=== PATIENT | male | born 1950 | race Caucasian/White ===

== ENCOUNTER 2022-01-07 10:54 | Observation (INO) | payer MEDICARE ==
[~2022-01-07] VITALS: Ht 177.8 cm; Wt 120.0 kg
[2022-01-07 11:24] LABS: HEMATOCRIT 48.2 % (39.0-50.0); HEMOGLOBIN 16.2 g/dl (14.0-18.0); IMMATURE GRANULOCYTES 0.3 % (0.0-5.0); MEAN CELL VOLUME 85.5 fL CALC (80.0-100.0); MEAN CORPUSCULAR HGB 28.7 pG CALC (26.0-32.0); MEAN CORPUSCULAR HGB CONC 33.6 g/dL CAL (32.0-36.0); NEUT# 6.03 thou/uL (1.82-7.42); RED BLOOD COUNT 5.64 mill/uL (4.70-6.10); RED CELL DISTRI WIDTH 15.4 % (11.5-15.5)
[2022-01-07 11:51] LABS: ALBUMIN 4.5 g/dL (3.2-5.0); ALKALINE PHOSPHATASE 88 u/l (38-126); ANION GAP 14 (6-22 (CALC)); BILIRUBIN, TOTAL 1.4 mg/dL (0.0-1.4); BUN 17 mg/dL (8-23); BUN/CREATININE RATIO 31 (12-20 (CALC)); CARBON DIOXIDE 25 mmol/l (22-30); CHLORIDE 102 mmol/l (95-108); CREATININE 0.6 mg/dL (0.7-1.3); GFR FOR AFR.AMER. > 60 ML/MIN (>=60 (CALC)); GFR OTHER RACES > 60 ML/MIN (>=60 (CALC)); POTASSIUM 4.1 mmol/l (3.5-5.1); SGOT/AST 23 u/l (19-48); SODIUM 138 mmol/l (137-146); TOTAL PROTEIN 7.6 g/dL (6.3-8.2)
[2022-01-07] MEDS ORDERED: LISINOPRIL20 M1 PO (14:19)
[2022-01-07] MEDS ORDERED: NORVASC2.5 M1 PO (14:19)
[2022-01-07] MEDS ORDERED: METFORMIN HCL1000 MG PO (14:20)
[2022-01-07 16:55] VITALS: BP 156/93
[2022-01-07 19:21] VITALS: BP 152/80
[2022-01-08] VITALS (8 sets, daily range): BP systolic 136–176; BP diastolic 70–96
[2022-01-08] MEDS ORDERED: VITAMIN C500 M6 PO (10:25)
[2022-01-08] MEDS ORDERED: VITAMIN E100 UNI2 PO (10:25)
[2022-01-08 15:28] LABS: URINE BILIRUBIN - DIPSTICK NEGATIVE (NEGATIVE); URINE BLOOD DIPSTICK NEGATIVE (NEGATIVE); URINE CLARITY CLEAR; URINE GLUCOSE - DIPSTICK NEGATIVE (NEGATIVE); URINE KETONE NEGATIVE (NEGATIVE); URINE LEUK ESTERASE NEGATIVE (Negative); URINE NITRITE - DIPSTICK NEGATIVE (Negative); URINE PH 5.5 (4.5-8.0); URINE PROTEIN - DIPSTICK 30 mg/dL (NEG-TRACE); URINE SPECIFIC GRAVITY >=1.030
[2022-01-08 15:29] LABS: URINE COLOR DK. YELLOW; URINE EPITHELIAL CELLS FEW EPI/hpf (0-FEW); URINE MUCUS FEW hpf (NONE-FEW)
[2022-01-09 04:31] VITALS: BP 145/90
[2022-01-09 05:51] LABS: HEMATOCRIT 44.9 % (39.0-50.0); HEMOGLOBIN 14.7 g/dl (14.0-18.0); IMMATURE GRANULOCYTES 0.7 % (0.0-5.0); MEAN CELL VOLUME 85.9 fL CALC (80.0-100.0); MEAN CORPUSCULAR HGB 28.1 pG CALC (26.0-32.0); MEAN CORPUSCULAR HGB CONC 32.7 g/dL CAL (32.0-36.0); NEUT# 5.83 thou/uL (1.82-7.42); RED BLOOD COUNT 5.23 mill/uL (4.70-6.10); RED CELL DISTRI WIDTH 15.2 % (11.5-15.5)
[2022-01-09 06:13] LABS: ALBUMIN 3.7 g/dL (3.2-5.0); ALKALINE PHOSPHATASE 88 u/l (38-126); ANION GAP 14 (6-22 (CALC)); BILIRUBIN, TOTAL 0.9 mg/dL (0.0-1.4); BUN 11 mg/dL (8-23); BUN/CREATININE RATIO 19 (12-20 (CALC)); CARBON DIOXIDE 24 mmol/l (22-30); CHLORIDE 105 mmol/l (95-108); CREATININE 0.6 mg/dL (0.7-1.3); GFR FOR AFR.AMER. > 60 ML/MIN (>=60 (CALC)); GFR OTHER RACES > 60 ML/MIN (>=60 (CALC)); POTASSIUM 3.8 mmol/l (3.5-5.1); SGOT/AST 21 u/l (19-48); SODIUM 139 mmol/l (137-146); TOTAL PROTEIN 6.8 g/dL (6.3-8.2)
[2022-01-09 09:21] VITALS: BP 151/78
[2022-01-09 10:59] LABS: C-REACTIVE PROTEIN 19.4 mg/dL (0-0.9)
[2022-01-09 12:51] VITALS: BP 140/75
[2022-01-09 15:49] VITALS: BP 142/75
[2022-01-09 15:50] VITALS: BP 139/84
[2022-01-09] MEDS ORDERED: TAMSULOSIN HCL0.4 MG PO (18:11)
[2022-01-09] MEDS ORDERED: DULOXETINE HCL60 MG PO (18:14)
[2022-01-09] MEDS ORDERED: ATORVASTATIN CA1 POW PO (18:15)
[2022-01-09] MEDS ORDERED: LOSARTAN POTASS50 MG PO (18:16)
[2022-01-09] MEDS ORDERED: MYRBETRIQ50 MG PO (18:17)
[2022-01-09 19:04] VITALS: BP 153/70
[2022-01-10 00:12] VITALS: BP 144/84
[2022-01-10 04:35] VITALS: BP 147/84
[2022-01-10 06:46] VITALS: BP 157/89
[2022-01-10 08:49] VITALS: BP 157/89
== END 2022-01-10 13:55 | disposition short-term general hospital (02) ==
LOC: ED 10:54 → ED-I 13:25 → ED 14:19 → MS2 14:20
PROVIDERS: Family Medicine; Nurse Practitioner; ADMIT Internal Medicine; ATTEND Internal Medicine
DX: D49.6 Neoplasm of unspecified behavior of brain (principal); G93.6 Cerebral edema; I10 Essential (primary) hypertension; E11.9 Type 2 diabetes mellitus without complications; S80.12XA Contusion of left lower leg, initial encounter; S80.11XA Contusion of right lower leg, initial encounter; W19.XXXA Unspecified fall, initial encounter; Z79.84 Long term (current) use of oral hypoglycemic drugs; Z20.822 Contact with and (suspected) exposure to COVID-19; Z86.69 Personal history of other diseases of the nervous system and sense organs
CPT/HCPCS: A9579; J1650; Q3014

== ENCOUNTER 2022-06-25 00:09 | Emergency (ER) | payer MEDICARE ==
[2022-06-25] VITALS (24 sets, daily range): BP systolic 119–160; BP diastolic 65–96
[~2022-06-25] VITALS: Ht 177.8 cm; Wt 116.0 kg
[~2022-06-25 00:09] MED LIST: ATORVASTATIN CA1 POW PO; DULOXETINE HCL60 MG PO; LISINOPRIL20 M1 PO; LOSARTAN POTASS50 MG PO; METFORMIN HCL1000 MG PO; MYRBETRIQ50 MG PO; NORVASC2.5 M1 PO; TAMSULOSIN HCL0.4 MG PO; VITAMIN C500 M6 PO; VITAMIN E100 UNI2 PO
== END 2022-06-25 08:49 ==
LOC: ED 00:09
DX: S43.402A Unspecified sprain of left shoulder joint, initial encounter (principal); I10 Essential (primary) hypertension; W07.XXXA Fall from chair, initial encounter; Y92.099 Unspecified place in other non-institutional residence as the place of occurrence of the external cause